=== PATIENT | male | born 1980 | race Caucasian/White ===

== ENCOUNTER 2021-09-20 16:11 | Emergency (ER) | payer OTHER ==
[2021-09-20] MEDS ORDERED: Clindamycin 150 MG CAP ONE (16:37)
[2021-09-20] MEDS ORDERED: Lidocaine 1% (PF) 30 ML VIAL ONE (16:37)
[2021-09-20] MEDS ORDERED: Boostrix 0.5 ML (Tdap) VIAL ONE (16:37)
[2021-09-20] MEDS ORDERED: HYDROcodone/Acetaminophen 5/325 mg Tablet ONE (17:15)
== END 2021-09-20 17:19 | disposition home or self-care (01) ==
LOC: BURERS 16:11
DX: L02.612 Cutaneous abscess of left foot (principal); I10 Essential (primary) hypertension; E78.5 Hyperlipidemia, unspecified; I25.10 Atherosclerotic heart disease of native coronary artery without angina pectoris; I25.2 Old myocardial infarction; M10.9 Gout, unspecified; F17.210 Nicotine dependence, cigarettes, uncomplicated; Z23 Encounter for immunization
CPT/HCPCS: 10060; 90471; 90715; J2001